=== PATIENT | female | born 1955 | race Caucasian/White ===

== ENCOUNTER 2016-05-12 23:01 | Observation (INO) | payer MEDICAID ==
[2016-05-12] MEDS ORDERED: Ondansetron INJ* 2 MG/ML VIAL IV ONE (23:32)
--- NOTE | 2016-05-12 23:40 | ED ---
Influenza-Like Illness - HPI Summary HPI Summary: Patient presents with nausea, vomiting, LUQ pain and sore throat since yesterday. She says her esophagus hurts from vomiting. She has not been able to keep food or drink down today. She denies fever, chills, diarrhea, constipation , back pain, chest pain, SOB or POTTER. No nasal or chest congestion, or cough. She has a history of alcohol abuse, but says she has not had an alcohol drink for 5 months. - History of Current Complaint Chief Complaint: EDNauseaVomitDiarrh Time Seen by Provider: 05/12/16 23:07 Hx Obtained From: Patient Onset/Duration: Gradual Onset Severity: Severe Associated Signs & Symptoms: Sore Throat, Vomiting - Allergy/Home Medications Allergies/Adverse Reactions: Allergies Allergy/AdvReac Type Severity Reaction Status Date / Time Penicillins Allergy Rash Verified 08/04/15 12:26 Home Medications: Home Medications Multiple Vitamins W/ Minerals [Vitamins & Minerals] 1 tab PO DAILY 05/13/16 [ History Confirmed 05/13/16] PMH/Surg Hx/FS Hx/Imm Hx Cardiovascular History: Reports: Other Cardiovascular Problems/Disorders - 1991 : cardiac ablation for v-tach Musculoskeletal History: Reports: Hx Back Problems Sensory History: Reports: Hx Contacts or Glasses - glasses for reading Denies: Hx Hearing Problem Opthamlomology History: Reports: Hx Contacts or Glasses - glasses for reading Psychiatric History: Reports: Hx Substance Abuse - ETOH Denies: Hx Eating Disorder, Hx of Violent Episodes Against Others - Surgical History Surgery Procedure, Year, and Place: 1991: cardiac ablation for ventricular tachycardia Infectious Disease History: No Infectious Disease History: Denies: Traveled Outside the [place] in Last 30 Days - Family History Known Family History: Positive: Cardiac Disease - FATHER - CHF - Social History Occupation: Unemployed Lives: Alone Alcohol Use: None Hx Substance Use: No Substance Use Type: Reports: None Hx Tobacco Use: Yes Smoking Status (MU): Never Smoked Tobacco Review of Systems Positive: Fatigue. Negative: Fever, Chills Positive: Sore Throat. Negative: Nasal Discharge Negative: Chest Pain Negative: Shortness Of Breath Positive: Abdominal Pain - LUQ, Vomiting, Nausea. Negative: Diarrhea All Other Systems Reviewed And Are Negative: Yes Physical Exam Triage Information Reviewed: Yes Vital Signs On Initial Exam: Initial Vitals Temp Pulse Resp BP Pulse Ox 97.5 F 115 18 154/100 98 05/12/16 23:05 05/12/16 23:05 05/12/16 23:05 05/12/16 23:05 05/12/16 23:05 Vital Signs Reviewed: Yes Appearance: Positive: Well-Appearing, No Pain Distress, Obese Skin: Positive: Warm, Skin Color Reflects Adequate Perfusion, Dry, Soft Head/Face: Positive: Normal Head/Face Inspection Eyes: Positive: EOMI, MANJEET, Conjunctiva Clear ENT: Positive: Hearing grossly normal, Pharyngeal erythema, Tonsillar exudate Neck: Positive: Supple, Nontender, No Lymphadenopathy Respiratory/Lung Sounds: Positive: Clear to Auscultation, Breath Sounds Present Cardiovascular: Positive: Tachycardia Abdomen Description: Positive: Soft. Negative: Nontender - Mild TTP LUQ; non- tender all other quadrants and non-tender sternum and bilateral ribs, CVA Tenderness (R), CVA Tenderness (L), Distended, Guarding Bowel Sounds: Positive: Present Musculoskeletal: Negative: Edema Left, Edema Right Neurological: Positive: Sensory/Motor Intact, Alert, Oriented to Person Place, Time, NV Bundle Intact Distally Psychiatric: Positive: Affect/Mood Appropriate AVPU Assessment: Alert Diagnostics - Vital Signs Vital Signs Temp Pulse Resp BP Pulse Ox 05/12/16 23:30 112 142/105 99 05/12/16 23:23 113 146/104 98 05/12/16 23:08 114 98 05/12/16 23:05 97.5 F 115 18 154/100 98 - Laboratory Result Diagrams: 05/14/16 06:02 05/14/16 05:57 Lab Statement: Any lab studies that have been ordered have been reviewed, and results considered in the medical decision making process. - EKG No standard instances Cardiac Rate: NL EKG Rhythm: Sinus Rhythm ST Segment: Non-Specific Ectopy: None Re-Evaluation - Re-Evaluation First Eval Re-Evaluation Time: 01:00 Change: Worse Comment: patient vomited brown liquid. This will be sent to lab for evaluation. Second Eval Re-Evaluation Time: 20:00 Change: Unchanged - On re-evaluation patient mentions that she has vomited brown liquid throughtout the day and believes there were "coffee grounds" in th liquid. Flu Symptom Course/Dx - Course Course Of Treatment: Patient will be admitted for observation and further evaluation related to her upper GI bleed. - Diagnoses Differential Diagnosis/HQI/PQRI: Positive: Bronchitis, Influenza, RSV, Upper Respiratory Infection Provider Diagnoses: Upper gastrointestinal bleed, Gastroenteritis, Dehydration Discharge - Discharge Plan Condition: Stable Disposition: ADMITTED TO [facility]
[2016-05-12 23:48] LABS: Hematocrit 49 % (35-47); Hemoglobin 16.1 g/dl (12.0-16.0); Mean Corpuscular HGB Conc 33 g/dl (31-36); Mean Corpuscular Hemoglobin 34 pg (27-31); Mean Corpuscular Volume 103 fL (80-97); Mean Platelet Volume 9 um3 (7.4-10.4); Red Blood Count 4.69 10^6/ul (4.0-5.4); Red Cell Distribution Width 17 % (10.5-15)
[2016-05-12] MEDS ORDERED: Pantoprazole IV* 40 MG IV ONE (23:48)
[2016-05-12] MEDS: NS 0.9% 1000 ML* 2,000 ML IV ONE (23:49)
[2016-05-13 00:35] LABS: Troponin I 0.01 ng/mL (<0.04)
[2016-05-13] MEDS: NS 0.9% 1000 ML* 2,000 ML IV ONE (00:35)
[2016-05-13] MEDS ORDERED: Magic Mouth Was-BEN/MAAL/LIDO SWISH SWAL ONE (00:37)
[2016-05-13] MEDS ORDERED: Magic Mouth Was-BEN/MAAL/LIDO SWISH SWAL SCH (01:00)
[2016-05-13] MEDS ORDERED: Morphine INJ* 2 MG/ML 1 ML CARPUJECT IV ONE (01:34)
[2016-05-13] MEDS ORDERED: Metoclopramide IV* 5 MG/ML 2 ML VIAL IV ONE (01:39)
[2016-05-13] MEDS ORDERED: NS 0.9% 1000 ML* 1,000 ML IV ONE (02:04)
--- NOTE | 2016-05-13 02:36 | HP ---
H&P (Free Text) History and Physical: PCP: Willam Iglesias MD Date/Time of Evaluation: 05/13/2016 0230 CC: N/V HPI: Mrs Edouard is a 60YO female HX alcoholism 5 months sober presenting with onset Friday of sore throat which became severe Friday and associated with intractable N/V, chills, rigors, & SOB. She denies chest pain, palpitations, earache, cough, congestion, abdominal pain, diarrhea, B/U/F of urine or other issues. She states swallowing makes the pain worse, nothing makes it better. Evaluation is notable for labs consistent with severe dehydration. ECG is negative. PMedHx chronic LBP alcoholism Allergies Penicillins Allergy (Verified 08/04/15 12:26) Rash Ambulatory Orders Multiple Vitamins W/ Minerals [Vitamins & Minerals] 1 tab PO DAILY 05/13/16 SocHx: no alcohol x5 months, HX polysubstance abuse but denies currently; , lives alone, 1 adult son studying pharmacy at [employer]; on SSI disability 2nd chronic LBP; full code status FamHx: Father: alcoholism, passed of CHF ROS: as above, otherwise reviewed and all were negative Constitutional: NAD, normally developed, overweight white female vitals: Vital Signs Temp 36.4 C 05/12/16 23:05 Pulse 82 05/13/16 03:00 Resp 18 05/13/16 01:50 BP 153/81 05/13/16 03:00 Pulse Ox 98 05/13/16 03:00 Intake & Output 05/12/16 05/12/16 05/13/16 11:59 23:59 11:59 Intake Total 2049 Balance 2049 Weight 81.647 kg Intake: IV Fluids 2049 HEENM: atraumatic; sclera/conjunctiva: non-icteric/clear; hearing: clinically intact; oropharynx: clear, mucosa dry Neck: soft tissue: no nuchal rigidity; thyroid: normal Pulmonary: clear to auscultation bilaterally, good aeration, no accessory muscle use CV: RR/RR, normal S1S2, no carotid bruit, no jugular venous distention, 2+ B DP/ PT, no edema Abdominal: soft, non-distended, non-tender, no rebound/guarding/rigidity, normoactive bowel sounds, no hepatosplenomegaly or masses, no costovertebral angle tenderness Musculoskeletal: general: grossly intact; gait: stable Integumental: lips dry, otherwise normal appearance and texture of exposed skin Psychiatric orientation: AA&O to PPS affect: calm mood: cooperative eye contact: good content: reliable responses: timely insight: good Testing: Lab Results 05/12/16 05/12/16 05/12/16 Range/Units 23:25 23:25 23:59 WBC 11.0 H (3.5-10.8) 10^3/ul RBC 4.69 (4.0-5.4) 10^6/ul Hgb 16.1 H (12.0-16.0) g/dl Hct 49 H (35-47) % MCV 103 H (80-97) fL MCH 34 H (27-31) pg MCHC 33 (31-36) g/dl RDW 17 H (10.5-15) % Plt Count 159 (150-450) 10^3/ul MPV 9 (7.4-10.4) um3 Neut % (Auto) 88.7 H (38-83) % Lymph % (Auto) 4.2 L (25-47) % Nicholas % (Auto) 6.9 (1-9) % Eos % (Auto) 0 (0-6) % Baso % (Auto) 0.2 (0-2) % Absolute Neuts (auto) 9.7 H (1.5-7.7) 10^3/ul Absolute Lymphs (auto) 0.5 L (1.0-4.8) 10^3/ul Absolute Monos (auto) 0.8 (0-0.8) 10^3/ul Absolute Eos (auto) 0 (0-0.6) 10^3/ul Absolute Basos (auto) 0 (0-0.2) 10^3/ul Absolute Nucleated RBC 0.01 10^3/ul Nucleated RBC % 0.1 Sodium 134 (133-145) mmol/L Potassium 3.7 (3.5-5.0) mmol/L Chloride 92 L (101-111) mmol/L Carbon Dioxide 10 L* (22-32) mmol/L Anion Gap 32 H (2-11) mmol/L BUN 11 (6-24) mg/dL Creatinine 0.98 H (0.51-0.95) mg/dL Est GFR ( Amer) 74.2 (>60) Est GFR (Non-Af Amer) 57.7 (>60) BUN/Creatinine Ratio 11.2 (8-20) Glucose 140 H (70-100) mg/dL Calcium 10.2 (8.6-10.3) mg/dL Magnesium 1.7 L (1.9-2.7) mg/dL Total Bilirubin 1.70 H (0.2-1.0) mg/dL AST 32 (13-39) U/L ALT 27 (7-52) U/L Alkaline Phosphatase 71 (34-104) U/L Troponin I 0.01 (<0.04) ng/mL C-Reactive Protein 27.66 H (< 5.00) mg/L Total Protein 9.9 H (6.4-8.9) g/dL Albumin 5.3 H (3.2-5.2) g/dL Globulin 4.6 H (2-4) g/dL Albumin/Globulin Ratio 1.2 (1-3) Lipase 79 (11.0-82.0) U/L Serum Alcohol < 10 (<10) mg/dL Group A Strep Rapid Negative (Negative) ECG, personally reviewed: NSR rate 98, no ischemia Impression: 60F presenting with marked dehydration 2nd N/V and upper GI bleed DIAGNOSIS & PLAN Primary upper GI bleed : trend H&H : IVFs : consider GI consult if indicated : supplemental oxygen : check rapid influenza : supportive care N/V, likely viral gastroenteritis : IVFs, monitor hypoKalemia & hypoMagnesemia 2nd emesis : replete & recheck Secondary alcoholism : 5 months sober : no acute issues Admission Rational: observation for dehydration, gastroenteritis, & upper GI bleed DVTp: SCDs, no anticoagulation 2nd heme positive emesis Code Status: full HCP: son, Javid Bee
[2016-05-13 02:46] LABS: ALT 27 U/L (7-52); AST 32 U/L (13-39); Albumin 5.3 g/dL (3.2-5.2); Alcohol < 10 mg/dL (<10); Alkaline Phosphatase 71 U/L (34-104); BUN/Creatinine Ratio 11.2 (8-20); Blood Urea Nitrogen 11 mg/dL (6-24); C Reactive Protein 27.66 mg/L (< 5.00); Calcium 10.2 mg/dL (8.6-10.3); Chloride 92 mmol/L (101-111); EGFR African American 74.2 (>60); EGFR Non-African American 57.7 (>60); Globulin 4.6 g/dL (2-4); Glucose 140 mg/dL (70-100); Lipase 79 U/L (11.0-82.0); Magnesium 1.7 mg/dL (1.9-2.7); Potassium 3.7 mmol/L (3.5-5.0); Sodium 134 mmol/L (133-145); Total Protein 9.9 g/dL (6.4-8.9)
[2016-05-13 02:47] LABS: Anion Gap 32 mmol/L (2-11); CO2 Carbon Dioxide 10 mmol/L (22-32)
[2016-05-13] MEDS ORDERED: Thiamine IV* 100 MG/ML 2 ML VIAL IV ONE (03:28)
[2016-05-13] MEDS ORDERED: Magnesium Sulfate 2 GM IV* 2 GM/50 ML BAG IVPB ONE (03:29)
[2016-05-13] MEDS ORDERED: Ondansetron INJ* 2 MG/ML VIAL IV PRN (03:39)
[2016-05-13] MEDS ORDERED: Melatonin (NF) 3 MG TAB PO PRN (03:39)
[2016-05-13] MEDS ORDERED: PROCHLORPERAZINE INJ 5 MG/ML 2 ML VIAL IV PRN (03:40)
[2016-05-13] MEDS ORDERED: NS 0.9% 1000 ML* 1,000 ML IV SCH (03:45)
[2016-05-13] MEDS ORDERED: Pantoprazole IV* 40 MG IV SCH ×2 (04:00→04:30)
[2016-05-13] MEDS: KCL 20 MEQ/100 ML IVPREMIX* 20 MEQ/100 ML BAG IV SCH ×2 (05:11→09:06)
[2016-05-13] MEDS: traMADol TAB* 50 MG PO PRN ×3 (05:11→21:16)
[2016-05-13] MEDS: Lidocaine 2% VISCOUS* 15 ML UDC SWISH SWAL PRN ×3 (05:11→13:32)
[2016-05-13 05:12] LABS: Hematocrit 40 % (35-47); Hemoglobin 13.4 g/dl (12.0-16.0); Mean Corpuscular HGB Conc 34 g/dl (31-36); Mean Corpuscular Hemoglobin 35 pg (27-31); Mean Corpuscular Volume 103 fL (80-97); Mean Platelet Volume 8 um3 (7.4-10.4); Red Blood Count 3.88 10^6/ul (4.0-5.4); Red Cell Distribution Width 16 % (10.5-15); White Blood Count 8.5 10^3/ul (3.5-10.8)
[2016-05-13 05:25] LABS: BUN/Creatinine Ratio 14.5 (8-20); Calcium 8.6 mg/dL (8.6-10.3); EGFR African American 111.2 (>60); EGFR Non-African American 86.5 (>60); Magnesium 2.2 mg/dL (1.9-2.7); Potassium 3.7 mmol/L (3.5-5.0)
[2016-05-13] MEDS: Acetaminophen TAB* 325 MG PO PRN ×2 (05:52→21:16)
[2016-05-13] MEDS: Docusate CAP* 100 MG PO SCH ×2 (09:00→21:07)
--- NOTE | 2016-05-13 11:12 | PN ---
Subjective Date of Service: 05/13/16 Interval History: This is a 60 yo female with a h/o alcoholism, sober now for 5 months, who presented yesterday to the ER with intractable n/v and coffee ground emesis. Patient had been feeling ill for several days prior to admission and yesterday began to vomit. She vomited multiple times, she reported every 30 min or so. Mid day, she noted it appeared coffee ground. Her emesis was positive for occult blood in the ER and stool was negative. Patient was subsequently admitted for upper GI bleed, likely due to severe gastritis/esophagitis secondary to viral gastroenteritis. Patient reports that her nausea has improved. She is now tolerating liquids, but severe pain in her throat and epigastrum with swallowing. Objective Active Medications: Acetaminophen (Tylenol Tab*) 650 mg PO Q6H PRN PRN Reason: FEVER/PAIN Last Admin: 05/13/16 05:52 Dose: 650 mg Docusate Sodium (Colace Cap*) 200 mg PO BID [facility] Last Admin: 05/13/16 09:00 Dose: Not Given Sodium Chloride (Ns 0.9% 1000 Ml*) 1,000 mls @ 200 mls/hr IV PER RATE [facility] Last Admin: 05/13/16 05:11 Dose: 200 mls/hr Lidocaine (Xylocaine 2% Viscous*) 20 ml SWISH SWAL Q4H PRN PRN Reason: SORE THROAT Last Admin: 05/13/16 09:02 Dose: 20 ml Melatonin (Melatonin (Nf)) 3 mg PO BEDTIME PRN; Protocol PRN Reason: Sleep Ondansetron HCl (Zofran Inj*) 4 mg IV Q6H PRN PRN Reason: NAUSEA Pantoprazole Sodium (Protonix Iv*) 40 mg IV 0900 [facility] Last Admin: 05/13/16 05:11 Dose: 40 mg Prochlorperazine Edisylate (Compazine Inj*) 10 mg IV Q6H PRN PRN Reason: NAUSEA Tramadol HCl (Ultram*) 50 mg PO Q6H PRN PRN Reason: PAIN Last Admin: 05/13/16 05:11 Dose: 50 mg Vital Signs: Temp Pulse Resp BP Pulse Ox 98.7 F 92 16 102/61 99 05/13/16 07:14 05/13/16 07:14 05/13/16 08:00 05/13/16 07:14 05/13/16 10:15 Appearance: Mildly ill appearing middle aged female in NAD Ears/Nose/Mouth/Throat: Mucous Membranes Moist Respiratory: Symmetrical Chest Expansion and Respiratory Effort, Clear to Auscultation Cardiovascular: NL Sounds; No Murmurs; No JVD, RRR Abdominal: - - abdomen soft and BS present. Some mild-mod TTP in the midepigastrum Extremities: No Edema Skin: No Rash or Ulcers Neurological: Alert and Oriented x 3 Result Diagrams: 05/13/16 05:01 05/13/16 05:01 Microbiology and Other Data: Microbiology 05/13/16 05:16 Influenza Types A,B Antigen (VALENTÍN) - Final Nasal Specimen received for Influenza A/B Molecular testing Assess/Plan/Problems-Billing Assessment: This is a 60 yo female with a h/o of alcoholism, sober for the last 5 months who presented with intractable nausea and vomiting and evidence of upper GI bleed. - Patient Problems (1) Upper GI bleed Comment: Likely due to severe gastritis/esophagitis related to frequent vomiting Patient gives a history where her vomiting started with normal appearing vomitus and then it became coffee ground after multiple episodes Hgb dropped since admission, but suspect a large portion of this is dilutional as she was severely dehydrated Will repeat H&H this afternoon and will request GI consult if she has evidence of continued bleeding for EGD No further vomitus since admission (2) Metabolic acidosis Comment: Likely due to severe GI losses of HCO3- Improving with IV fluids (3) Viral gastroenteritis Comment: Continue supportive care Tolerating liquids well (4) Alcoholism Comment: Reported sobriety x 5 months ETOH neg at admission No signs of withdrawal (5) Chronic back pain Status and Disposition: Continue supportive care. Observation status. Likely ready for dc tomorrow.
[2016-05-13 11:13] LABS: Urine Bacteria Absent (Absent); Urine Bilirubin Negative (Negative); Urine Glucose Negative (Negative); Urine Nitrite Negative (Negative)
[2016-05-13] MEDS: NS 0.9% 1000 ML* 1,000 ML IV SCH ×2 (13:32→23:30)
[2016-05-13 16:15] LABS: Hematocrit 36 % (35-47); Hemoglobin 12.2 g/dl (12.0-16.0)
[2016-05-13 16:26] LABS: BUN/Creatinine Ratio 21.7 (8-20); Calcium 8.8 mg/dL (8.6-10.3); EGFR African American 177.6 (>60); EGFR Non-African American 138.1 (>60); Potassium 3.6 mmol/L (3.5-5.0)
[2016-05-13] MEDS: Pantoprazole IV* 40 MG IV SCH (21:19)
[2016-05-13 21:36] LABS: Hematocrit 36 % (35-47); Hemoglobin 12.3 g/dl (12.0-16.0)
[2016-05-14 06:34] LABS: Hematocrit 35 % (35-47); Hemoglobin 11.7 g/dl (12.0-16.0); Mean Corpuscular HGB Conc 34 g/dl (31-36); Mean Corpuscular Hemoglobin 35 pg (27-31); Mean Corpuscular Volume 103 fL (80-97); Red Blood Count 3.37 10^6/ul (4.0-5.4); Red Cell Distribution Width 16 % (10.5-15); White Blood Count 8.3 10^3/ul (3.5-10.8)
[2016-05-14 06:37] LABS: Comments Flag Yes
[2016-05-14 06:38] LABS: Add Diff/Slide Review? Slide Review Added
[2016-05-14 06:51] LABS: BUN/Creatinine Ratio 18.9 (8-20); Calcium 8.3 mg/dL (8.6-10.3); EGFR African American 228.3 (>60); EGFR Non-African American 177.5 (>60); Potassium 3.4 mmol/L (3.5-5.0)
[2016-05-14 07:17] LABS: Mean Platelet Volume 9 um3 (7.4-10.4)
[2016-05-14] MEDS: Docusate CAP* 100 MG PO SCH ×2 (07:49→20:10)
[2016-05-14] MEDS: Pantoprazole IV* 40 MG IV SCH ×2 (07:59→20:08)
[2016-05-14] MEDS: traMADol TAB* 50 MG PO PRN ×2 (07:59→19:29)
[2016-05-14] MEDS ORDERED: KCL 20 MEQ/100 ML IVPREMIX* 20 MEQ/100 ML BAG IV ONE (08:30)
[2016-05-14] MEDS ORDERED: KCL 20 MEQ/100 ML IVPREMIX* 20 MEQ/100 ML BAG IV SCH (09:00)
[2016-05-14] MEDS: Acetaminophen TAB* 325 MG PO PRN ×2 (09:17→19:29)
[2016-05-14] MEDS: NS 0.9% 1000 ML* 1,000 ML IV SCH (09:17)
[2016-05-14] MEDS: Lidocaine 2% VISCOUS* 15 ML UDC SWISH SWAL PRN ×2 (12:54→22:30)
--- NOTE | 2016-05-14 17:22 | PN ---
Subjective Date of Service: 05/14/16 Interval History: patient reports she is feeling better, less throat pain. no further vomiting. Abdominal pain has resolved. Feeling like she is getting her strength and appetite back but slowly. Objective Active Medications: Acetaminophen (Tylenol Tab*) 650 mg PO Q6H PRN PRN Reason: FEVER/PAIN Last Admin: 05/14/16 09:17 Dose: 650 mg Docusate Sodium (Colace Cap*) 200 mg PO BID [facility] Last Admin: 05/14/16 07:49 Dose: Not Given Lidocaine (Xylocaine 2% Viscous*) 20 ml SWISH SWAL Q4H PRN PRN Reason: SORE THROAT Last Admin: 05/14/16 12:54 Dose: 20 ml Melatonin (Melatonin (Nf)) 3 mg PO BEDTIME PRN; Protocol PRN Reason: Sleep Last Admin: 05/13/16 21:17 Dose: 3 mg Ondansetron HCl (Zofran Inj*) 4 mg IV Q6H PRN PRN Reason: NAUSEA Pantoprazole Sodium (Protonix Iv*) 40 mg IV BID [facility] Last Admin: 05/14/16 07:59 Dose: 40 mg Prochlorperazine Edisylate (Compazine Inj*) 10 mg IV Q6H PRN PRN Reason: NAUSEA Tramadol HCl (Ultram*) 50 mg PO Q6H PRN PRN Reason: PAIN Last Admin: 05/14/16 07:59 Dose: 50 mg Vital Signs 05/13/16 05/13/16 05/13/16 19:26 21:16 23:16 Temperature 98.0 F Pulse Rate 76 Respiratory 18 18 16 Rate Blood Pressure 130/66 (mmHg) O2 Sat by Pulse 96 Oximetry 05/13/16 05/14/16 05/14/16 23:28 02:38 02:43 Temperature 98.4 F Pulse Rate 73 Respiratory 18 18 18 Rate Blood Pressure 126/62 (mmHg) O2 Sat by Pulse 97 Oximetry 05/14/16 05/14/16 05/14/16 03:27 07:59 08:00 Temperature 97.6 F Pulse Rate 79 Respiratory 16 18 18 Rate Blood Pressure 137/83 (mmHg) O2 Sat by Pulse 96 Oximetry 05/14/16 05/14/16 05/14/16 09:59 11:18 15:46 Temperature 98.4 F 98.0 F Pulse Rate 77 78 Respiratory 16 16 Rate Blood Pressure 126/72 126/73 (mmHg) O2 Sat by Pulse 97 97 Oximetry Oxygen Devices in Use Now: None Appearance: obese female laying in bed in NAD. A+O x3 Eyes: No Scleral Icterus, PERRLA Ears/Nose/Mouth/Throat: NL Teeth, Lips, Gums, Mucous Membranes Moist Neck: NL Appearance and Movements; NL JVP Respiratory: Symmetrical Chest Expansion and Respiratory Effort, Clear to Auscultation Cardiovascular: NL Sounds; No Murmurs; No JVD, RRR, No Edema Abdominal: NL Sounds; No Tenderness; No Distention Extremities: No Edema, No Clubbing, Cyanosis Skin: No Rash or Ulcers, No Nodules or Sclerosis Neurological: Alert and Oriented x 3, NL Sensation, NL Muscle Strength and Tone Lines/Tubes/Other Access: Clean, Dry and Intact Peripheral IV Nutrition: Taking PO's Result Diagrams: 05/14/16 06:02 05/14/16 05:57 Microbiology and Other Data: Microbiology 05/13/16 05:16 Influenza Types A,B Antigen (VALENTÍN) - Final Nasal Specimen received for Influenza A/B Molecular testing Assess/Plan/Problems-Billing Assessment: This is a 60 yo female with a h/o of alcoholism, sober for the last 5 months who presented with intractable nausea and vomiting and evidence of upper GI bleed. - Patient Problems (1) Upper GI bleed Comment: Likely due to severe gastritis/esophagitis related to frequent vomiting Patient gives a history where her vomiting started with normal appearing vomitus and then it became coffee ground after multiple episodes Hgb dropped since admission, but suspect a large portion of this is dilutional as she was severely dehydrated HH stable. Side consult GI Dr. Maciel and patient can have outpt Egd. No further vomitus since admission (2) Viral gastroenteritis Comment: Continue supportive care Tolerating liquids well (3) Metabolic acidosis Comment: Likely due to severe GI losses of HCO3- Improving with IV fluids (4) Alcoholism Comment: Reported sobriety x 5 months ETOH neg at admission No signs of withdrawal (5) Chronic back pain Comment: - supportive - Ultram prn (6) DVT prophylaxis Comment: SCDs Status and Disposition: Inpatient with viral gastroenteritis and upper GI bleed. Plan for DC home tomorrow.
[2016-05-15] MEDS: traMADol TAB* 50 MG PO PRN ×3 (01:39→14:29)
[2016-05-15] MEDS: Acetaminophen TAB* 325 MG PO PRN ×3 (01:42→14:31)
[2016-05-15] MEDS: Lidocaine 2% VISCOUS* 15 ML UDC SWISH SWAL PRN ×2 (04:10→08:07)
[2016-05-15 06:25] LABS: Hematocrit 34 % (35-47); Hemoglobin 11.6 g/dl (12.0-16.0); Mean Corpuscular HGB Conc 34 g/dl (31-36); Mean Corpuscular Hemoglobin 35 pg (27-31); Mean Corpuscular Volume 102 fL (80-97); Mean Platelet Volume 9 um3 (7.4-10.4); Red Blood Count 3.34 10^6/ul (4.0-5.4); Red Cell Distribution Width 16 % (10.5-15); White Blood Count 4.9 10^3/ul (3.5-10.8)
[2016-05-15 06:26] LABS: Comments Flag Yes
[2016-05-15 06:44] LABS: Calcium 8.8 mg/dL (8.6-10.3); EGFR African American 280.1 (>60); EGFR Non-African American 217.8 (>60); Potassium 2.9 mmol/L (3.5-5.0)
[2016-05-15] MEDS: Docusate CAP* 100 MG PO SCH (08:05)
[2016-05-15] MEDS: Pantoprazole IV* 40 MG IV SCH (08:05)
[2016-05-15 09:16] VITALS: BP 144/92
[2016-05-15] MEDS ORDERED: Potassium Chlor TAB* 20 MEQ TAB.ER PO ONE (13:34)
[2016-05-15] MEDS ORDERED: KCL 20 MEQ/100 ML IVPREMIX* 20 MEQ/100 ML BAG IV ONE (13:35)
--- NOTE | 2016-05-15 13:40 | DCNOTE ---
Subjective Date of Service: 05/15/16 Interval History: patient reports she feels better and would like to go home. No further vomiting. Continues to have a sore throat. Denies black, tarry or blood BMs. Reports her appetite is coming back, tolerating PO . No abdominal pain. Objective Active Medications: Acetaminophen (Tylenol Tab*) 650 mg PO Q6H PRN PRN Reason: FEVER/PAIN Last Admin: 05/15/16 08:05 Dose: 650 mg Docusate Sodium (Colace Cap*) 200 mg PO BID [facility] Last Admin: 05/15/16 08:05 Dose: 200 mg Potassium Chloride (Potassium Chloride 20 Meq/100 Ml Ivpremix*) 20 meq in 100 mls @ 50 mls/hr IV ONCE ONE Stop: 05/15/16 15:34 Lidocaine (Xylocaine 2% Viscous*) 20 ml SWISH SWAL Q4H PRN PRN Reason: SORE THROAT Last Admin: 05/15/16 08:07 Dose: 20 ml Melatonin (Melatonin (Nf)) 3 mg PO BEDTIME PRN; Protocol PRN Reason: Sleep Last Admin: 05/13/16 21:17 Dose: 3 mg Ondansetron HCl (Zofran Inj*) 4 mg IV Q6H PRN PRN Reason: NAUSEA Pantoprazole Sodium (Protonix Iv*) 40 mg IV BID [facility] Last Admin: 05/15/16 08:05 Dose: 40 mg Potassium Chloride (Klor Con Er Tab*) 40 meq PO ONCE ONE Stop: 05/15/16 13:35 Prochlorperazine Edisylate (Compazine Inj*) 10 mg IV Q6H PRN PRN Reason: NAUSEA Tramadol HCl (Ultram*) 50 mg PO Q6H PRN PRN Reason: PAIN Last Admin: 05/15/16 08:06 Dose: 50 mg Vital Signs 05/14/16 05/14/16 05/14/16 15:46 19:29 20:00 Temperature 98.0 F Pulse Rate 78 Respiratory 17 16 Rate Blood Pressure 126/73 (mmHg) O2 Sat by Pulse 97 Oximetry 05/14/16 05/14/16 05/15/16 21:29 23:18 01:39 Temperature 98.1 F Pulse Rate 79 Respiratory 16 16 20 Rate Blood Pressure 155/82 (mmHg) O2 Sat by Pulse 96 Oximetry 05/15/16 05/15/16 05/15/16 03:39 07:27 08:06 Temperature 98.0 F Pulse Rate 71 Respiratory 17 16 16 Rate Blood Pressure 157/94 (mmHg) O2 Sat by Pulse 97 Oximetry 05/15/16 05/15/16 09:00 10:06 Temperature Pulse Rate Respiratory 16 Rate Blood Pressure 144/92 (mmHg) O2 Sat by Pulse Oximetry Oxygen Devices in Use Now: None Appearance: obese female sitting up on the side of the bed in NAD. A+O x3 Eyes: No Scleral Icterus, PERRLA Ears/Nose/Mouth/Throat: NL Teeth, Lips, Gums, Mucous Membranes Moist Neck: NL Appearance and Movements; NL JVP, Trachea Midline Respiratory: Symmetrical Chest Expansion and Respiratory Effort, Clear to Auscultation Cardiovascular: NL Sounds; No Murmurs; No JVD, RRR, No Edema Abdominal: NL Sounds; No Tenderness; No Distention Extremities: No Edema Skin: No Rash or Ulcers, No Nodules or Sclerosis Neurological: Alert and Oriented x 3, NL Sensation, NL Gait, NL Muscle Strength and Tone Lines/Tubes/Other Access: Clean, Dry and Intact Peripheral IV Nutrition: Taking PO's Result Diagrams: 05/15/16 05:57 05/15/16 05:56 Microbiology and Other Data: Microbiology 05/13/16 05:16 Influenza Types A,B Antigen (VALENTÍN) - Final Nasal Specimen received for Influenza A/B Molecular testing Assess/Plan/Problems-Billing Assessment: This is a 60 yo female with a h/o of alcoholism, sober for the last 5 months who presented with intractable nausea and vomiting and evidence of upper GI bleed. - Patient Problems (1) Upper GI bleed Comment: Likely due to severe gastritis/esophagitis related to frequent vomiting Patient gives a history where her vomiting started with normal appearing vomitus and then it became coffee ground after multiple episodes Hgb dropped since admission, but suspect a large portion of this is dilutional as she was severely dehydrated HH stable. Side consult GI Dr. Maciel and patient can have outpt Egd. No further vomitus since admission (2) Viral gastroenteritis Comment: Continue supportive care Tolerating liquids well (3) Thrombocytopenia Comment: - suspect secondary to viral syndrome (4) Metabolic acidosis Comment: resolved (5) Alcoholism Comment: Reported sobriety x 5 months ETOH neg at admission No signs of withdrawal (6) Chronic back pain Comment: - supportive - Ultram prn (7) DVT prophylaxis Comment: SCDs Status and Disposition: Inpatient with viral gastroenteritis and upper GI bleed. Plan for DC home today
[2016-05-15] MEDS ORDERED: Sucralfate TAB* 1 GM PO ONE (14:15)
--- NOTE | 2016-05-16 04:49 | DS ---
DISCHARGE SUMMARY: DATE OF ADMISSION: 05/13/16 DATE OF DISCHARGE: 05/15/16 ATTENDING PHYSICIAN: Dr. Butler* (report dictated by Dariela Ferguson, JORGE L). PRIMARY CARE PROVIDER: Dr. Iglesias. PRIMARY DIAGNOSES: 1. Viral gastroenteritis. 2. Upper gastrointestinal bleed. 3. Electrolyte abnormalities. SECONDARY DIAGNOSES: 1. Chronic low back pain. 2. History of alcoholism. Reports 5 months of being sober. DISCHARGE MEDICATIONS: Multivitamin with minerals 1 tab p.o. daily. NEW MEDICATIONS: 1. Carafate 1 g p.o. t.i.d. 2. Potassium chloride 10 mEq p.o. daily. 3. Omeprazole 20 mg p.o. b.i.d. 4. Acetaminophen 650 mg p.o. q.6 h. p.r.n. HISTORY OF PRESENT ILLNESS AND HOSPITAL COURSE: Please see history and physical by Dr. Torres for full admission details but in summary this is a 60-year-old female with a past medical history of alcoholism who reports 5 months of being sober, chronic low back pain who presented on 05/13/16 with complaints of nausea and vomiting. Ms. Edouard reports that starting 2 days prior to admission she developed a sore throat, which became severe Friday and had associated intractable nausea, vomiting, chills, rigors and shortness of breath, reporting she was vomiting every 30 minutes. On 05/13/16, the patient felt worse and came to the emergency department for further evaluation. On admission to the emergency department, she did vomit and there was noted blood in the vomit. She was admitted to the hospitalist service for intractable nausea and vomiting secondary to viral gastroenteritis and possible upper GI bleed. The patient was unwell throughout her hospitalization. She has remained afebrile and had a mild leukocytosis of 11 on admission but resolved by the next day. The patient has had no further vomiting throughout hospitalization. She was given IV fluids and electrolyte replacement of magnesium and potassium. She was noted to have a bicarb of 10 on admission, noted to be metabolic acidosis likely due to severe GI losses of bicarb which resolved with IV fluids. The patient reports that she has been sober for 5 months, reports that she goes to regularly. Today, on discharge she is stable. Reports she has had a resolution of abdominal pain since yesterday. No fevers, vomiting, chills. Is tolerating p.o. well. Is ambulating with a steady gait and is stable for discharge home. Please note, on admission she did have a positive gastric occult blood which appears to be a singular finding and has not had any further GI bleeding as well as her hemoglobin has remained stable throughout hospitalization. I got to speak to with Dr. Maciel, restorative art embalmer, over the phone who recommended an upper endoscopy as an outpatient, especially due to history of long-term alcoholism in the past. The patient has had complaints of a sore throat throughout hospitalization. She had a negative Strep throat culture. I suspect this is secondary to her vomiting multiple times and is most likely an irritation, possibly some gastritis. The patient has been started on omeprazole and Carafate with some improvement. The patient was negative for influenza A and B. her stool occult blood was negative for blood and urine culture was negative for bacteria. Please note that the patient is noted to have a thrombocytopenia with platelets down to 67. I suspect this is secondary to viral syndrome. I have requested that the patient get labs drawn in 2 days with results sent to Dr. Iglesias. DISCHARGE PLAN: 1. The patient is stable for discharge home. The discharge has been reviewed with the patient and she states understanding. 2. Follow up with Dr. Iglesias within 3 to 5 days. I left a message with his office and they should be calling the patient for a followup appointment. 3. Followup with the [facility] for an outpatient upper endoscopy. CBC and BMP to be drawn in 2 days on 05/17/[address] Iglesias. TIME SPENT: Approximately 60 minutes were spent on this discharge. DARIELA FERGUSON NP CC: Dr. Iglesias * [id number]/[facility] #: [id number] [place]
== END 2016-05-15 17:30 | disposition home or self-care (01) ==
LOC: ED 23:01 → MED 05-13 03:54
PROVIDERS: ADMIT Hospitalist; ATTEND Hospitalist
DX: A08.4 Viral intestinal infection, unspecified (principal); K92.2 Gastrointestinal hemorrhage, unspecified; E87.8 Other disorders of electrolyte and fluid balance, not elsewhere classified; G89.29 Other chronic pain; M54.5 Low back pain; Z88.0 Allergy status to penicillin; F10.21 Alcohol dependence, in remission; E87.6 Hypokalemia; E83.42 Hypomagnesemia; J02.9 Acute pharyngitis, unspecified
CPT/HCPCS: 36415; 80048; 80053; 80320; 81003; 81015; 82271; 82272; 83605; 83690; 83735; 84484; 85014; 85018; 85025; 85060; 86140; 87086; 87502; 87651; 93005; 96374; 96375; 99285; A9270-GY; G0378; G0480; J2270; J2405; J2765; J3411; J3475; J3480